=== PATIENT | male | born 1975 | race Caucasian/White ===

== ENCOUNTER → 2024-09-23 14:38 | Outpatient (BNVA) | payer OTHER, SELFPAY | PROVIDERS: Visit Provider Physician Assistant | DX: M67.432 Ganglion, left wrist (principal); S69.92XA Unspecified injury of left wrist, hand and finger(s), initial encounter; X50.0XXA Overexertion from strenuous movement or load, initial encounter | CPT/HCPCS: 73110 ==

== ENCOUNTER 2024-11-05 11:42 | Outpatient (CLI) | payer OTHER, SELFPAY ==
--- NOTE | 2024-11-05 07:30 | MR_ITS ---
WS: [id number] MRI LEFT WRIST WITHOUT CONTRAST. COMPARISON: Radiograph 09/23/2024 Multiplanar, multisequence imaging is performed without contrast. There is a very small amount of marrow edema in the radial styloid process. Mild narrowing of the radiocarpal joint. Foreshortened ulna and negative ulnar variance. Very mild widening of the distal radial ulnar joint. There is deformity of the distal ulna which is probably related to prior trauma. Normal scaphoid. There is marked thickening and abnormal signal involving the extensor pollicis brevis and abductor pollicis longus tendons and the sheath as it passes along the distal radius and radial styloid. There is marked thickening and loss of the normal morphology of the tendon. Distal to the radial styloid the tendons are not apparent and could be completely torn. Elongation of the TFCC secondary to the negative ulnar variance. Partially torn scapholunate ligament. MR/MR wrist LT wo con* [id number] IMPRESSION: 1. Significant abnormal signal with marked thickening in the extensor pollicis brevis and the abductor pollicis longus tendons adjacent to the radial styloid . Distal to the radial styloid the tendons are not readily apparent. Suspect hi gh-grade tear with tendinopathy. 2. Negative ulnar variance. 3. Partially torn scapholunate ligament.
== END 2024-11-05 11:43 | disposition home or self-care (01) ==
PROVIDERS: Visit Provider Physician Assistant
DX: S63.592A Other specified sprain of left wrist, initial encounter (principal); X58.XXXA Exposure to other specified factors, initial encounter
CPT/HCPCS: 73221

== ENCOUNTER 2024-12-17 07:55 | Day surgery (SDC) | payer OTHER, SELFPAY ==
[2024-12-17] VITALS (10 sets, daily range): BP systolic 104–166; BP diastolic 38–99; PULSE 58–86; RESP 16–18; TEMP 36.1–36.9; O2SAT 98–100
[2024-12-17] MEDS: acetaminophen 1,000 MG/100 ML PIGGYBACK 400 MG IV (08:26)
--- NOTE | 2024-12-17 09:00 | P.ANESASSM_ITS ---
Pre-Anesthetic Assessment Height/Weight: Height 5 ft 8 in Weight 229 lb Temp Pulse Resp BP Pulse Ox O2 Del Method 97 F L 75 18 166/99 100 Room Air 12/17/24 08:14 12/17/24 08:14 12/17/24 08:14 12/17/24 08:14 12/17/24 08:14 12/17/24 08:14 Preop Diagnosis: De Quervain's tendinitis Operation Date: 12/17/24 09:15 Proposed Procedures p LEFT Wrist De Quervain's Release(Left) - Darwin Mckinnon DO s extensor pollicis brevis and abductor pollicis longus tendon exploration w/ Possible tendon debridement VS repair(Left) - Darwin Mckinnon DO s Possible LEFT Tendon Autograft Repair(Left) - Darwin Mckinnon DO Was Beta Sharri taken within 24 hours: N/A Was Clonidine taken within 24 hours: N/A Last intake: Intake Last Liquid Date 12/16/24 Last Liquid Time 18:00 Last Solid Date 12/16/24 Last Solid Time 18:00 Social No alcohol and No tobacco Exam alert, oriented x 3, clear to auscultation bilaterally and regular rate & rhythm Airway Submandibular: within normal limits Cervical ROM: within normal limits Mallampati: Class II Dentition: full Comments: Comments: Large mcclure Anesthetic Plan ASA status: 2 Anesthesia: General Other: Patient states that he woke up during his colonoscopy but no other anesthesia issues N.p.o. since yesterday evening Patient is extremely nervous today Denies any cardiac or pulmonary issues METs greater than 4 Plan for general anesthesia with LMA and local via surgeon Medications/Allergies Home Medications ?Medication ?Instructions ?Recorded ?Confirmed ?Last Taken ?Type meloxicam 15 mg tablet 15 mg PO DAILY #30 tabs 05/2 05/3012/17/24 12/09/24 Rx Allergies Allergy/AdvReac Type Severity Reaction Status Date / Time No Known Allergies Allergy Verified 11/25/24 13:17 Current Medications Generic Name Dose Route Start Last Admin Trade Name Freq PRN Reason Stop Dose Admin Sodium Chloride 1,000 mls @ 30 mls/hr 12/17/24 08:00 12/17/24 08:26 Sodium Chloride 0.9% IV 12/18/24 07:59 30 mls/hr .Q24H NEGRITA Administration PFSH Anesthesia Social History Smoking and tobacco/nicotine status: never used tobacco/nicotine
--- NOTE | 2024-12-17 09:07 | W.PM.OPSUD ---
Surgery/Procedure H&P Update DATE OF PROCEDURE: December 17, 2024 DATE H&P PERFORMED: 11/25/24 H&P UPDATE INFORMATION: I have reviewed H&P completed within last 30 days, I have examined patient prior to procedure and No changes to prior documentation PREOP DIAGNOSIS: Left De Quervain's tendinitis, left wrist injury, left hand extensor tendin PRIMARY INDICATION FOR PROCEDURE: Left De Quervain's tenosynovitis, left wrist injury, left hand extensor tendinitis PLANNED PROCEDURE: Operation Date: 12/17/24 09:15 Proposed Procedures p LEFT Wrist De Quervain's Release(Left) - Darwin Mckinnon DO s extensor pollicis brevis and abductor pollicis longus tendon exploration w/ Possible tendon debridement VS repair(Left) - Darwin Mckinnon DO s Possible LEFT Tendon Autograft Repair(Left) - Darwin Mckinnon DO
[2024-12-17] MEDS: ceFAZolin 2,000 MG in sodium chloride 0.9% (plus) 50 ML 100 MG IV (09:39)
[2024-12-17] MEDS: ROPivacaine 0.5% SDV 30 mL 15 MG INJECTION (10:11)
--- NOTE | 2024-12-17 10:22 | P.OP_ITS ---
Operative Report Date of procedure: December 17, 2024 Surgeon: Darwin Mckinnon DO Flap Lining Binder: Felipe Mckinnon PA-C: PA was necessary for assistance in this case with hand positioning to execute the procedure, retraction and protection of neurovascular structures as well as to assist with wound closure and dressing application. Procedure: Preop Diagnosis: Left De Quervain's tenosynovitis, left wrist injury, left hand extensor tendinitis Post-op diagnosis: Left wrist de Quervain's tenosynovitis Procedure done: 1. Left wrist de Quervain's release Surgeon: Darwin Mckinnon DO Anesthesia: General Estimated blood loss: 5 mL Tourniquet time 14 minutes IV fluids: 800 mL Complications: None Findings: See operative report narrative Condition: stable Disposition: same day Brief History: Patient is a pleasant [ 49 ]year-old [ M ] with left wrist de Quervain's disease with considerable extensor tendon tendinitis which on MRI concerning for possible partial tearing or injury. Patient has been worked up in the outpatient setting findings and physical examination consistent with this. We detailed out patient's risk benefits complication alternatives with surgical and nonsurgical treatment options. Through shared decision making, patient agrees to proceed with surgical intervention of the left wrist de quervain's release with possible EPB and APL tendon exploration with possible debridement vs repair, possible tendon autograft repair Patient understands and agrees with current plan. All questions answered. Patient elects to proceed with surgical intervention. Procedure: Patient seen and evaluated in the preoperative holding area. Consent was reviewed and signed with patient. Correct extremity was marked. Patient was seen evaluated by the anesthesia department once cleared for surgery was brought back to the operative suite. [facility] in supine position all bony prominences were well-padded patient properly secured to the bed. Left upper extremity was then placed onto an armboard. A nonsterile tourniquet was applied to the left upper arm. Patient underwent anesthesia per the anesthesia department. Patient's left upper extremity was then prepped and draped in standard orthopedic fashion. Final timeout performed. Patient received appropriate preoperative antibiotics. Under sterile aseptic technique patient received local anesthesia over the preplanned incision site. Esmarch was used to exsanguinate the left upper extremity and tourniquet was insufflated to 250 mmHg. I then proceeded with the left wrist de Quervain's release and tendon exploration.? I marked out the first dorsal compartment a standare longitudinal incision was made directly over this.? Sharp scalpel incision was made through skin only switch to Littler dissection scissors and protected the superficial branch of the radial nerve as well as neurovascular structures.? I then had direct visualization of the first dorsal compartment sharp scalpel incision I used to then simply incise the first dorsal compartment.. Once I incised I then immediately encountered the EPB and APL tendons. Tendons had significant signs of hourglassing and constriction but no significant fraying. Patient had a considerably thickened ligament over the first dorsal compartment this was released to its entirety proximally with Littler dissection scissors and protection of neurovascular structures by my tax assistant. This was then released up into the forearm and there was no evidence of entrapment there. Next I then switched to my dissection distally. I continued with dissection scissors as well as sharp scalpel incision to excise entirety of the distalmost extent of the first dorsal compartment to have a complete release distally. I then diss ected each individual tendon out all the way to its insertion site confirming there was complete intact tendons distally no evidence of tendon rupture or tear. These were both pulled with a rag nail and performed a standard actions of EPB and APL. Of note the EPB tendon was within a significantly thickened subs sheath which was incised with sharp scalpel incision and the small leaflet within the mid substance of that tunnel was excised just to allow for more space for the tendons. Once again the tendons had a significant hourglassing with a bulbous appearance proximally as well as distally we pulled each tendon with a rag nails and had smooth range of motion as well as took the wrist through range of motion and the stayed within the first dorsal compartment. This completed the procedure no need for any tendon repairs as the tendons were intact. Wound was then thoroughly irrigated. Tourniquet deflated. Hemostasis satisfactory with bipolar electrocautery. I then closed the incision with interrupted nylon stitches. Xeroform 4 x 4's and a bulky soft dressing and splint was applied to the left upper extremity. Patient was then awakened from anesthesia and taken to PACU in stable condition. Patient tolerated procedure without complications. Disposition: Patient taken to PACU in stable condition recovering well. Dressing clean dry and intact. Patient will receive appropriate discharge instructions as well as pain medication postoperatively. Patient to follow-up with ortho in the office in 2 weeks. Patient should keep incision clean dry and intact. Patient understands if any questions or concerns may contact the office.
--- NOTE | 2024-12-17 10:46 | P.BOP_ITS ---
Date of Procedure: [December 17, 2024] Surgeon: [Dr. Mckinnon DO] Consulting Utility Forester(s): [Felipe Mckinnon PA-C] Procedure(s) performed: [Left wrist de Quervain's release] Findings of the procedure(s): [Left wrist de Quervain's syndrome. Procedure went well and as planned] Estimated blood loss: [5 mL] Specimen(s) removed: [N/A] Post-operative diagnosis: [Left wrist de Quervain's syndrome]
--- NOTE | 2024-12-17 10:56 | PM.PACU ---
PACU note Narrative: Patient is a 49-year-old male that just underwent a left wrist de Quervain's release. Patient transferred to PACU in stable condition. Pain is well controlled. Dressing on hand is dry and in place. Patient's fingers are warm and well-perfused. Patient can wiggle fingers. normal cap refill under 2 seconds. Patient has normal elbow range of motion. Sensation to fingers intact Exam: awake Disposition: discharged
--- NOTE | 2024-12-17 11:50 | ANE.PACU2 ---
Inpatient post-anesthesia follow up: Airway intact: Yes Vital signs: Temperature 97.2 F Pulse Rate 64 Respiratory Rate 16 Blood Pressure 122/39 Pulse Oximetry 100 Oxygen Delivery Me thod Room Air Oxygen Flow Rate 6 Fraction of Inspir ed Oxygen Hydration adequate: Yes Nausea and vomiting: No Pain level: 1 Mental status: Baseline
== END 2024-12-17 11:50 | disposition home or self-care (01) ==
PROVIDERS: Visit Provider Student in an Organized Health Care Education/Training Program
PROC: (CPT 25000; principal; 2024-12-17 09:15)
DX: M65.4 Radial styloid tenosynovitis [de Quervain] (principal)
CPT/HCPCS: 25000; A7015; J0131; J0690; J1100; J1885; J2250; J2405; J2704; J2795; J3010; J7030; J9999